=== PATIENT | male | born 1985 | race Caucasian/White ===

== ENCOUNTER 2018-04-08 13:12 | Emergency (ER) | payer MEDICAID ==
[~2018-04-08] VITALS: Ht 185.4 cm; Wt 88.6 kg
[2018-04-08 13:24] VITALS: Ht 185.4 cm; Wt 88.6 kg
[2018-04-08] MEDS ORDERED: ZOLOFT50 MG PO (13:26)
[2018-04-08] MEDS ORDERED: LOPRESSOR25 MG PO (13:27)
[2018-04-08] MEDS ORDERED: BACTRIM DS TABL1 TAB PO (13:41)
[2018-04-08 13:45] VITALS: BP 105/59
== END 2018-04-08 13:48 | disposition home or self-care (01) ==
LOC: D.ER 13:12
DX: L03.116 Cellulitis of left lower limb (principal); I10 Essential (primary) hypertension; F17.200 Nicotine dependence, unspecified, uncomplicated

== ENCOUNTER 2020-02-17 15:42 | Emergency (ER) | payer MEDICAID ==
[~2020-02-17] VITALS: Ht 185.4 cm; Wt 90.9 kg
[~2020-02-17 15:42] MED LIST: BACTRIM DS TABL1 TAB PO; LOPRESSOR25 MG PO; ZOLOFT50 MG PO
[2020-02-17 16:13] VITALS: Ht 185.4 cm; Wt 90.9 kg
[2020-02-17] MEDS ORDERED: INVEGA 3 MG ER T3 MG PO (16:14)
[2020-02-17] MEDS ORDERED: VALIUM5 MG PO (16:15)
[2020-02-17 17:18] VITALS: BP 122/73
== END 2020-02-17 17:19 | disposition home or self-care (01) ==
LOC: D.ER 15:42
DX: S63.501A Unspecified sprain of right wrist, initial encounter (principal); Z86.73 Personal history of transient ischemic attack (TIA), and cerebral infarction without residual deficits; I25.2 Old myocardial infarction; I10 Essential (primary) hypertension; J44.9 Chronic obstructive pulmonary disease, unspecified; Z72.0 Tobacco use; W19.XXXA Unspecified fall, initial encounter; Y93.9 Activity, unspecified; Y92.9 Unspecified place or not applicable

== ENCOUNTER 2020-12-20 17:36 | Emergency (ER) | payer MEDICAID ==
[~2020-12-20] VITALS: Ht 185.4 cm; Wt 97.7 kg
[~2020-12-20 17:36] MED LIST changes: +INVEGA 3 MG ER T3 MG PO; +VALIUM5 MG PO
[2020-12-20 18:00] VITALS: Ht 185.4 cm; Wt 97.7 kg
[2020-12-20 19:04] LABS: BASOPHILS 0.9 % (0-2); EOSINOPHILS 1.9 % (0-7); HEMATOCRIT 44.7 % (42.0-54.0); IMMATURE GRANULOCYTES 0.1 % (0-5); LYMPHOCYTE ABS# 2.79 10x3/uL (1.32-3.57); LYMPHOCYTES 39.7 % (15-50); MCH 30.6 pg (26.0-34.0); MCHC 33.6 g/dL (31.0-37.0); MCV 91.2 fL (80.0-100.0); MEAN PLATELET VOLUME 11.6 fL (7.4-10.4); MONOCYTES 8.5 % (2-11); NEUTROPHIL ABS# 3.43 10x3/uL (1.78-5.38); NEUTROPHILS 48.9 % (40-80); PLATELET COUNT 190 10x3/uL (130-400); RDW 13.1 % (11.5-14.5)
[2020-12-20 19:13] VITALS: BP 111/71
[2020-12-20] MEDS ORDERED: FLOVENT HFA 11012 GM INH (19:16)
[2020-12-20] MEDS ORDERED: COMBIVENT RESPIM4 GM INH (19:16)
[2020-12-20 19:19] LABS: CALC OSMOLALITY 271 mosm/kg (275-300); CALCIUM 9.1 mg/dL (8.5-10.1); CHLORIDE - SERUM 97 mmol/L (98-107); CREATININE - SERUM 1.2 mg/dL (0.6-1.3); GLUCOSE 98 mg/dL (74-106); POTASSIUM - SERUM 4.4 mmol/L (3.5-5.1); SODIUM 137 mmol/L (136-145); UREA NITROGEN 8 mg/dL (7-18); eGFR NON AFRICAN AMERICAN 73 mL/min (90-120)
[2020-12-20 19:22] LABS: APTT 30.3 SECONDS (22.8-39.4); INR 1.14 (0.85-1.17); PROTIME 13.6 SECONDS (11.6-15.0)
[2020-12-20 19:33] LABS: ALBUMIN 4.1 g/dL (3.4-5.0); ALKALINE PHOSPHATASE 57 U/L (30-120); ALT (SGPT) 23 U/L (10-68); BILIRUBIN - TOTAL 0.41 mg/dL (0.2-1.3); CKMB 1.3 U/L (0.0-3.6); CREATINE KINASE 140 UL (21-232); PRO BNP 12 pg/mL (0-125); PROTEIN - SERUM 7.1 g/dL (6.4-8.2)
[2020-12-20 19:34] LABS: TROPONIN-I < 0.017 ng/mL (0.000-0.060)
== END 2020-12-20 19:29 | disposition home or self-care (01) ==
LOC: D.ER 17:36
PROVIDERS: Emergency Medicine
DX: R05 Cough (principal); R07.89 Other chest pain; Z86.73 Personal history of transient ischemic attack (TIA), and cerebral infarction without residual deficits

== ENCOUNTER 2021-01-23 09:40 | Emergency (ER) | payer MEDICAID ==
[~2021-01-23] VITALS: Ht 185.4 cm; Wt 97.7 kg
[~2021-01-23 09:40] MED LIST changes: +COMBIVENT RESPIM4 GM INH; +FLOVENT HFA 11012 GM INH
[2021-01-23 09:48] VITALS: Ht 185.4 cm; Wt 97.7 kg
[2021-01-23] MEDS ORDERED: CIPRODEX OTIC7.5 ML LEFT EAR (10:42)
[2021-01-23] MEDS ORDERED: CEPHALEXIN500 M1 PO (10:42)
[2021-01-23] MEDS ORDERED: CYCLOBENZAPRINE10 MG PO (10:42)
[2021-01-23] MEDS ORDERED: ACETAMINOPHEN500 M1 PO (10:42)
[2021-01-23] MEDS ORDERED: ACETIC ACID15 ML LEFT EAR (10:42)
[2021-01-23] MEDS ORDERED: MILK OF MAGNESI30 ML PO (10:44)
[2021-01-23] MEDS ORDERED: MIRALAX17 GM PO (10:44)
[2021-01-23 10:51] VITALS: BP 148/79
== END 2021-01-23 10:53 | disposition home or self-care (01) ==
LOC: D.ER 09:40
DX: H60.92 Unspecified otitis externa, left ear (principal); R51.9 Headache, unspecified; I25.2 Old myocardial infarction; Z72.0 Tobacco use

== ENCOUNTER 2021-03-01 15:10 | Emergency (ER) | payer MEDICAID ==
[~2021-03-01] VITALS: Ht 185.4 cm; Wt 94.1 kg
[~2021-03-01 15:10] MED LIST changes: +ACETAMINOPHEN500 M1 PO; +ACETIC ACID15 ML LEFT EAR; +CEPHALEXIN500 M1 PO; +CIPRODEX OTIC7.5 ML LEFT EAR; +CYCLOBENZAPRINE10 MG PO; +MILK OF MAGNESI30 ML PO; +MIRALAX17 GM PO
[2021-03-01 15:22] VITALS: BP 109/40; Ht 185.4 cm; Wt 94.1 kg
[2021-03-01 17:11] LABS: SARS-CoV-2 ANTIGEN NEGATIVE- SARS-COV-2 (NEGATIVE)
== END 2021-03-01 17:47 | disposition home or self-care (01) ==
LOC: D.ER 15:10
PROVIDERS: Family Medicine
DX: Z11.52 Encounter for screening for COVID-19 (principal); I25.2 Old myocardial infarction; I48.91 Unspecified atrial fibrillation; J45.909 Unspecified asthma, uncomplicated; F17.210 Nicotine dependence, cigarettes, uncomplicated

== ENCOUNTER 2021-03-07 12:49 | Emergency (ER) | payer MEDICAID ==
[~2021-03-07] VITALS: Ht 185.4 cm; Wt 90.9 kg
[2021-03-07 13:24] VITALS: Ht 185.4 cm; Wt 90.9 kg
[2021-03-07 15:25] VITALS: BP 136/80
[2021-03-07 16:45] LABS: SARS-CoV-2 ANTIGEN NEGATIVE- SARS-COV-2 (NEGATIVE)
== END 2021-03-07 16:10 | disposition home or self-care (01) ==
LOC: D.ER 12:49
PROVIDERS: Emergency Medicine
DX: J06.9 Acute upper respiratory infection, unspecified (principal); Z20.822 Contact with and (suspected) exposure to COVID-19; J44.9 Chronic obstructive pulmonary disease, unspecified; Z72.0 Tobacco use